=== PATIENT | female | born 1970 | race African-American/Black ===

== ENCOUNTER 2024-09-13 03:28 | Inpatient (IN) | payer OTHER ==
[~2024-09-13] VITALS: Ht 165.1 cm; Wt 81.4 kg
[2024-09-13] MEDS: cloNIDine HCL 0.1 MG TAB PO ONE (04:12)
[2024-09-13 04:25] LABS: Urine Bacteria None Seen /hpf (None Seen)
[2024-09-13 04:45] LABS: Urine Blood Negative /uL (Negative); Urine Clarity Clear (Clear); Urine Color Light-Yellow (Yellow); Urine Protein, UAD Negative (Negative); Urine Specific Gravity 1.037 (1.001-1.035); Urine Squamous Epithelial Cell FEW /hpf (<5); Urine Urobilinogen Normal (Negative); Urine WBC <1 /hpf (0 - 5)
--- NOTE | 2024-09-13 06:06 | DVH ---
Exam: CT CT AB PEL WO CON-NO ORAL OR IV History: abd pain Comparison Study: None Technique: Multidetector spiral CT of the abdomen was performed from lung bases to pubic symphysis. Imaging was performed without IV contrast. Axial, coronal and sagittal multiplanar reformats were ob tained from the axial data set by the technologist. Radiation Dose : 1. Abdomen/Pelvis: CTDIvol 9 mGy, DLP 480 mGy*cm. Findings: Evaluation of solid organs is limited due to lack of intravenous contrast use. Lung Bases: No acute or significant lung base finding. Normal heart size. No pleural or pericardial effusion. Liver: The liver is normal in size. No focal lesions. Gallbladder and Biliary Tree: Unremarkable Spleen: Unremarkable Pancreas: The pancreas is grossly normal in appearance. Adrenal Glands: Unremarkable Kidneys: Kidneys are grossly normal without calculi or hydronephrosis. Bladder: Grossly unremarkable for degree of distention. Bowel: The stomach is grossly normal in appearance. Diverticulosis. Moderate volume colonic stool. N ormal appendix is visualized in the right lower quadrant without findings of appendicitis. Ascites: Absent Lymphadenopathy: No mesenteric, retroperitoneal or periportal lymphadenopathy. Abdominal Wall and Mesentery: Unremarkable. Vasculature: The visualized abdominal aorta is normal in size and caliber. Evaluation of abdominal a nd pelvic vessels is limited due to lack of intravenous contrast. Pelvic Organs: Unremarkable Musculoskeletal: No aggressive focal bony lesions, acute fractures or dislocation. IMPRESSION: Moderate volume colonic stool. Radiation optimization: All CT scans at this facility use at least one of these dose optimization jammie hniques: automated exposure control mA and/or kV adjustment per patient size (includes targeted exam s where dose is matched to clinical indication) or iterative reconstruction.
[2024-09-13 06:15] LABS: Basophils # (auto) 0.1 10 ^3/uL (0-0.2); Eosinophils # (auto) 0.2 10 ^3/uL (0-0.8); Eosinophils % (auto) 1.9 % (0.0-7.0); Hematocrit 40.3 % (36.0-46.0); Hemoglobin 13.7 g/dL (12.2-16.2); Lymphocytes # (auto) 3.2 10 ^3/uL (0.4-5.4); Lymphocytes % (auto) 39.4 % (10.0-50.0); Monocytes # (auto) 0.5 10 ^3/uL (0-1.3); Monocytes % (auto) 6.8 % (0.0-12.0); Neutrophils # (auto) 4.1 10 ^3/uL (1.6-8.6); Neutrophils % (auto) 50.9 % (37.0-80.0); Platelet Count (auto) 268 10^3/uL (140-450); Red Blood Cells 4.43 10^6/uL (4.0-5.20); Red Cell Distribution Width 14.6 % (11.8-14.3)
[2024-09-13] MEDS: SODIUM CHLORIDE 0.9% 1,000 ML IV ONE (06:17)
[2024-09-13 06:22] LABS: Alanine Aminotransferase 13 U/L (7-40); Albumin 4.2 g/dL (3.2-4.8); Anion Gap 4 (5-15); BUN/Creatinine Ratio 11.7 (10.0-20.0); Blood Urea Nitrogen 12 mg/dL (9-23); Carbon Dioxide 29 mmol/L (20-31); Chloride 102 mmol/L (98-107); Lipase 36 U/L (12-53); Potassium 4.1 mmol/L (3.5-5.1); Total Protein 7.1 g/dL (5.7-8.2)
[2024-09-13 06:39] LABS: Amphetamine Screen, Urine Pos (NEGATIVE); Barbiturate Scree,Urine Neg (NEGATIVE); Benzodiazephine Screen, Urine Neg (NEGATIVE); Cannabinoid Screen, Urine Pos (NEGATIVE); Cocaine Screen, Urine Neg (NEGATIVE); Opiate Scree,Urine Neg (NEGATIVE); Phencyclidine Screen, Urine Neg (NEGATIVE)
[2024-09-13 06:44] LABS: Alkaline Phosphatase 144 U/L (46-116); Aspartate Aminotransferase 11 U/L (13-40); Bilirubin, Total 0.2 mg/dL (0.2-1.0); Glucose 330 mg/dL (74-106); Sodium 135 mmol/L (136-145)
--- NOTE | 2024-09-13 07:12 | ED.PDOC ---
GI ASSESSMENT HPI Comments 54 year old female presents to the ED with a chief complaint of abdominal pain onset 4 days. Patient states she has been experiencing diffused abdominal lapin that radiates to he back fo the past 4 days. Patient denies nausea, vomiting, diarrhea, constipation, dysuria, hematuria, dizziness, chest pain, shortness of breath. No other symptoms or modifying factors present at this time. 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 Family History Family History: Unknown Social History Smoker: Cigarettes Alcohol: Denies ETOH Use Drugs: Marijuana Lives In: Home Constitutional: denies: chills, diaphoresis, fatigue, fever, malaise, sweats, weakness, others EENTM: denies: blurred vision, double vision, ear bleeding, ear discharge, ear drainage, ear pain, ear ringing, eye pain, eye redness, hearing loss, mouth pain, mouth swelling, nasal discharge, nose bleeding, nose congestion, nose pain, photophobia, tearing, throat pain, throat swelling, voice changes, others Respiratory: denies: cough, hemoptysis, orthopnea, SOB at rest, shortness of breath, SOB with excertion, stridor, wheezing, others Cardiovascular: denies: chest pain, dizzy spells, diaphoresis, Dyspnea on exertion, edema, irregular heart beat, left arm pain, lightheadedness, palpitat ions, PND, syncope, others Gastrointestinal: reports: abdomen distended, abdominal pain; denies: blood streaked bowels, constipated, diarrhea, dysphagia, difficulty swallowing, hematemesis, melena, nausea, poor appetite, poor fluid intake, rectal bleeding, rectal pain, vomiting, others Genitourinary: denies: abnormal vagina bleeding, burning, dyspareunia, dysuria, flank pain, frequency, hematuria, incontinence, pain, , vagina discharge, urgency, others Neurological: denies: dizziness, fainting, headache, left sided numbness, left sided weakness, numbness, paresthesia, pre-existing deficit, right sided numbness, right sided weakness, seizure, speech problems, tingling, tremors, weakness, others Musculoskeletal: reports: back pain; denies: gout, joint pain, joint swelling, muscle pain, muscle stiffness, neck pain, others Integumetry: denies: bruises, change in color, change in hair/nails, dryness, laceration, lesions, lumps, rash, wounds, others Allergic/Immunocompromised: denies: Difficulty Healing, Frequent Infections, Hives, Itching, others Hematologic/Lymphatic: denies: anemia, blood clots, easy bleeding, easy bruising, swollen glands, others Endocrine: denies: excessive hunger, excessive sweating, excessive thirst, excessive urination, flushing, intolerance to cold, intolerance to heat, unexplained weight gain, unexplained weight loss, others Psychiatric: denies: anxiety, bipolar disorder, depression, hopeless, panic disorder, schizophrenia, sleepless, suicidal, others All Other Systems: Reviewed and Negative Physical Exam General Appearance: Moderate Distress HEENT: Normal ENT Inspection, Pharynx Normal, TMs Normal Neck: Full Range of Motion, Non-Tender, Normal, Normal Inspection Respiratory: Chest Non-Tender, Lungs Clear, No Accessory Muscle Use, No Respiratory Distress, Normal Breath Sounds Cardiovascular: No Edema, No JVD, No Murmur, No Gallop, Normal Peripheral Pulses, Regular Rate/Rhythm Breast Exam: Deferred Gastrointestinal: No Organomegaly, Non Tender, No Pulsatile Mass, Normal Bowel Sounds, Soft Genitalia: Deferred Pelvic: Deferred Rectal: Deferred Extremities: No calf tenderness, Normal capillary refill, Normal inspection, Normal range of motion, Non-tender, No pedal edema Musculoskeletal : Apperance: Normal Neurologic: Alert, 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 Was a procedure done?: No GI differential Dx Differential Diagnosis: Constipation, Diverticular disease, Esophagitis, Gastritis/PUD, Gastroenteritis X-Ray, Labs, Meds, VS Vital Signs Date Time Temp Pulse Resp B/P (MAP) Pulse Ox O2 Delivery O2 Flow Rate FiO2 09/13/24 06:31 90 18 109/103 (105) 99 09/13/24 06:31 109/103 09/13/24 06:23 70 14 184/43 (90) 99 09/13/24 04:38 98 09/13/24 04:12 213/123 09/13/24 03:45 98.5 100 16 213/123 (153) 99 Lab Test 09/13/24 05:53 09/13/24 03:54 Range/Units White Blood Count 8.0 4.4-10.8 10^3/uL Red Blood Count 4.43 4.0-5.20 10^6/uL Hemoglobin 13.7 12.2-16.2 g/dL Hematocrit 40.3 36.0-46.0 % Mean Corpuscular Volume 91.0 80.0-100.0 fL Mean Corpuscular Hemoglobin 31.0 28.0-32.0 pg Mean Corpuscular Hemoglobin Concent 34.0 32.0-36.0 g/dL Red Cell Distribution Width 14.6 H 11.8-14.3 % Platelet Count 268 140-450 10^3/uL Mean Platelet Volume 8.2 6.9-10.8 fL Neutrophils (%) (Auto) 50.9 37.0-80.0 % Lymphocytes (%) (Auto) 39.4 10.0-50.0 % Monocytes (%) (Auto) 6.8 0.0-12.0 % Eosinophils (%) (Auto) 1.9 0.0-7.0 % Basophils (%) (Auto) 1.0 0.0-2.0 % Neutrophils # (Auto) 4.1 1.6-8.6 10 ^3/uL Lymphocytes # (Auto) 3.2 0.4-5.4 10 ^3/uL Monocytes # (Auto) 0.5 0-1.3 10 ^3/uL Eosinophils # (Auto) 0.2 0-0.8 10 ^3/uL Basophils # (Auto) 0.1 0-0.2 10 ^3/uL Nucleated Red Blood Cells 0.0 % Sodium Level 135 L 136-145 mmol/L Potassium Level 4.1 3.5-5.1 mmol/L Chloride Level 102 98-107 mmol/L Carbon Dioxide Level 29 20-31 mmol/L Anion Gap 4 L 5-15 Blood Urea Nitrogen 12 9-23 mg/dL Creatinine 1.03 H 0.550-1.02 mg/dL Glomerular Filtration Rate Calc 64 >90 mL/min BUN/Creatinine Ratio 11.7 10.0-20.0 Serum Glucose 330 H 74-106 mg/dL Calcium Level 10.0 8.7-10.4 mg/dL Total Bilirubin 0.2 0.2-1.0 mg/dL Aspartate Amino Transferase (AST) 11 L 13-40 U/L Alanine Aminotransferase (ALT) 13 7-40 U/L Alkaline Phosphatase 144 H 46-116 U/L Total Protein 7.1 5.7-8.2 g/dL Albumin 4.2 3.2-4.8 g/dL Lipase 36 12-53 U/L Urine Color Light-yellow Yellow Urine Clarity Clear Clear Urine pH 6.0 5.0-9.0 Urine Specific [place] 1.037 H 1.001-1.035 Urine Protein Negative Negative Urine Ketones Negative Negative Urine Blood Negative Negative /uL Urine Nitrite Negative Negative Urine Bilirubin Negative Negative Urine Urobilinogen Normal Negative mg/dL Urine Leukocyte Esterase Negative Negative /uL Urine RBC 2 0 - 4 /hpf Urine WBC <1 0 - 5 /hpf Urine Squamous Epithelial Cells Few <5 /hpf Urine Bacteria None seen None Seen /hpf Urine Glucose 4+ H Normal mg/dL Urine Opiates Screen Neg NEGATIVE Urine Fentanyl Screen Neg NEGATIVE Urine Barbiturates Screen Neg NEGATIVE Urine Phencyclidine Screen Neg NEGATIVE Urine Amphetamines Screen Pos NEGATIVE Urine Benzodiazepines Screen Neg NEGATIVE Urine Cocaine Screen Neg NEGATIVE Urine Cannabinoids Screen Pos NEGATIVE Current Medications Medications (Trade) Dose Ordered Sig/Nathaly Route Start Time Stop Time Status Last Admin Clonidine HCl (Catapres Tablet) 0.2 mg ONCE ONCE PO 09/13/24 04:00 09/13/24 04:01 DC 09/13/24 04:12 Patient alert. Complaining of abdominal pain. Uses drugs. Blood pressure elevated. Was given clonidine. Methamphetamine. Marijuana. Blood sugar elevated. Establish intravenous access. Was given fluids. Blood pressure continues to be elevated. Abdomen is soft nontender. Reviewed her previous visit. Explained to the patient. Continue cardiac monitoring. CT scan of the abdomen reviewed does not show any acute changes. Time of 1ST Reevaluation: 07:04 Reevaluation 1ST: Unchanged Patient Education/Counseling: Diagnosis, Treatment, Prognosis Family Education/Counseling: No Family Present Additional Information I reviewed the following notes from patient's past medical encounters: none The following tests were ordered, and results were reviewed by me: EKG, UA, CT AB PEL WO CON, CBC, CMP, LIPASE, DRUG SCREEN I reviewed and agreed with the following test results read by other providers: CT AB PEL WO CON I discussed treatment and results with medical personnel and patient Departure 1 Departure Time of Disposition: 07:25 Impression: Primary Impression: Acute abdominal pain Additional Impressions: Uncontrolled diabetes mellitus Qualified Codes: E13.65 - Other specified diabetes mellitus with hyperglycemia Hypertensive urgency Marijuana use Methamphetamine use Disposition: ADMITTED INPATIENT Admit to: Med Surg Condition: Guarded Critical Care Note Critical Care Time?: Yes (90 min-critical care time only) Stability Stability form required: No Heart Score Heart Score: Heart Score Response (Comments) Value History N/A 0 EKG N/A 0 Age N/A 0 Risk Factors N/A 0 Troponin N/A 0 Total 0 I personally scribed for JOSÉ LUIS CASTELLANOS MD ([email or web address]) on 09/13/24 at 07:12. Electronically submitted by Shonda Levi ([email or web address]). I personally scribed for JOSÉ LUIS CASTELLANOS MD ([email or web address]) on 09/13/24 at 07:32. Electronically submitted by Shonda Levi ([email or web address]). JOSÉ LUIS CASTELLANOS MD Sep 13, 2024 07:12
[2024-09-13] MEDS: amLODIPine BESYLATE 5 MG TAB PO ONE (07:53)
[2024-09-13] MEDS ORDERED: PANTOPRAZOLE 40 MG/10 ML VIAL INJ IV ONE (11:00)
[2024-09-13] MEDS ORDERED: ACETAMINOPHEN 325 MG TAB PO PRN (11:00)
[2024-09-13] MEDS ORDERED: HYDROcodone-ACET 5/325MG TAB PO PRN (11:00)
[2024-09-13] MEDS ORDERED: SOD CHL 0.45% 1,000 ML IV ONE (11:00)
[2024-09-13] MEDS ORDERED: MORPHINE SULFATE INJ 2 MG/ml SYRG IV PRN (11:00)
[2024-09-13] MEDS ORDERED: hydrALAZINE HCL 20 MG/ML VL IV PRN (11:00)
[2024-09-13] MEDS ORDERED: NIFEdipine ER 30 MG TAB PO ONE (11:00)
[2024-09-13] MEDS ORDERED: ONDANSETRON HCL 4 MG/2 ML VIAL IV PRN (11:00)
--- NOTE | 2024-09-13 11:25 | DVHHP2 ---
History of Present Illness Reason for Visit: Abdominal pain History of Present Illness This 54-year-old female presents in the ED with a chief complaint of abdominal pain. The patient reports suprapubic abdominal pain radiates to right lower back started four days ago. Denies nausea, vomiting, diarrhea, constipation, melena, chest pain, shortness of breath, or other acute symptoms. The patient denies past medical history but admits to tobacco use 10 pack years, amphetamine and marijuana use. Past Medical History Denies Past Surgical History Tubal ligation Family History Reviewed, non-contributory to the management of this case. Past Social History Tobacco use 1/2 per day Amphetamine and marijuana use Denies EtOH abuse Review of Systems Constitutional: Yes: Malaise; No: Fever, Chills, Sweats, Weakness, Other Eyes: No: Pain, Vision change, Conjunctivae inflammation, Eyelid inflammation, Other, Redness ENT: No: Ear pain, Ear discharge, Nose pain, Nose discharge, Nose congestion, Mouth pain, Mouth swelling, Throat pain, Throat swelling, Other Respiratory: No: Cough, Dry, Shortness of breath, SOB with excertion, Wheezing, Hemoptysis, Pleuritic Pain, Sputum, Wheezing, Other Cardiovascular: No: Chest Pain, Palpitations, Orthopnea, Paroxysmal Noc. Dyspnea, Edema, Lt Headedness, Other Gastrointestinal: Abdominal Pain; No: Nausea, Vomiting, Diarrhea, Constipation, Melena, Hematochezia, Other Genitourinary: No Dysuria, No Frequency, No Incontinence, No Hematuria, No Retention, No Other Musculoskeletal: No: other, neck pain, shoulder pain, arm pain, back pain, hand pain, leg pain, foot pain Skin: No: Rash, Lesions, Jaundice, Bruising, Other Neurological: No: Weakness, Numbness, Incoordination, Change in speech, Confusion, Seizures, Other Allergies: Coded Allergies: Lisinopril (Verified Allergy, Unknown, 09/13/24) Metoclopramide (Verified Allergy, Unknown, 09/13/24) Exam Vital Signs Vital Signs Date Time Temp Pulse Resp B/P (MAP) Pulse Ox O2 Delivery O2 Flow Rate FiO2 09/13/24 07:53 175/109 09/13/24 07:33 95 20 99 Room Air 09/13/24 07:33 98.0 98.0 General Appearance: Alert, Oriented X3, Cooperative, mild distress HEENT: Atraumatic, PERRLA, EOMI, Mucous membr. moist/pink Respiratory: Clear to auscultation, Normal air movement Cardiovascular: Regular rate, Normal S1, Normal S2, Other (Uncontrolled BP) Abdominal: Normal bowel sounds, Soft, No tenderness, No hepatospenomegaly, No masses Extremities: No clubbing, No cyanosis, No edema, Normal pulses, No tenderness/swelling Skin: No rashes, No significant lesion Neuro: Normal gait, Normal speech, Strength at 5/5 X4 ext, Normal tone Psych/Mental Status: Mental status NL Labs/Xrays Labs Test 09/13/24 05:53 09/13/24 03:54 Range/Units White Blood Count 8.0 4.4-10.8 10^3/uL Red Blood Count 4.43 4.0-5.20 10^6/uL Hemoglobin 13.7 12.2-16.2 g/dL Hematocrit 40.3 36.0-46.0 % Mean Corpuscular Volume 91.0 80.0-100.0 fL Mean Corpuscular Hemoglobin 31.0 28.0-32.0 pg Mean Corpuscular Hemoglobin Concent 34.0 32.0-36.0 g/dL Red Cell Distribution Width 14.6 H 11.8-14.3 % Platelet Count 268 140-450 10^3/uL Mean Platelet Volume 8.2 6.9-10.8 fL Neutrophils (%) (Auto) 50.9 37.0-80.0 % Lymphocytes (%) (Auto) 39.4 10.0-50.0 % Monocytes (%) (Auto) 6.8 0.0-12.0 % Eosinophils (%) (Auto) 1.9 0.0-7.0 % Basophils (%) (Auto) 1.0 0.0-2.0 % Neutrophils # (Auto) 4.1 1.6-8.6 10 ^3/uL Lymphocytes # (Auto) 3.2 0.4-5.4 10 ^3/uL Monocytes # (Auto) 0.5 0-1.3 10 ^3/uL Eosinophils # (Auto) 0.2 0-0.8 10 ^3/uL Basophils # (Auto) 0.1 0-0.2 10 ^3/uL Nucleated Red Blood Cells 0.0 % Sodium Level 135 L 136-145 mmol/L Potassium Level 4.1 3.5-5.1 mmol/L Chloride Level 102 98-107 mmol/L Carbon Dioxide Level 29 20-31 mmol/L Anion Gap 4 L 5-15 Blood Urea Nitrogen 12 9-23 mg/dL Creatinine 1.03 H 0.550-1.02 mg/dL Glomerular Filtration Rate Calc 64 >90 mL/min BUN/Creatinine Ratio 11.7 10.0-20.0 Serum Glucose 330 H 74-106 mg/dL Calcium Level 10.0 8.7-10.4 mg/dL Total Bilirubin 0.2 0.2-1.0 mg/dL Aspartate Amino Transferase (AST) 11 L 13-40 U/L Alanine Aminotransferase (ALT) 13 7-40 U/L Alkaline Phosphatase 144 H 46-116 U/L Total Protein 7.1 5.7-8.2 g/dL Albumin 4.2 3.2-4.8 g/dL Lipase 36 12-53 U/L Urine Color Light-yellow Yellow Urine Clarity Clear Clear Urine pH 6.0 5.0-9.0 Urine Specific [place] 1.037 H 1.001-1.035 Urine Protein Negative Negative Urine Ketones Negative Negative Urine Blood Negative Negative /uL Urine Nitrite Negative Negative Urine Bilirubin Negative Negative Urine Urobilinogen Normal Negative mg/dL Urine Leukocyte Esterase Negative Negative /uL Urine RBC 2 0 - 4 /hpf Urine WBC <1 0 - 5 /hpf Urine Squamous Epithelial Cells Few <5 /hpf Urine Bacteria None seen None Seen /hpf Urine Glucose 4+ H Normal mg/dL Urine Opiates Screen Neg NEGATIVE Urine Fentanyl Screen Neg NEGATIVE Urine Barbiturates Screen Neg NEGATIVE Urine Phencyclidine Screen Neg NEGATIVE Urine Amphetamines Screen Pos NEGATIVE Urine Benzodiazepines Screen Neg NEGATIVE Urine Cocaine Screen Neg NEGATIVE Urine Cannabinoids Screen Pos NEGATIVE PROCEDURE(s): ABPL - CT AB PEL WO CON-NO ORAL OR IV REASON: abd pain ORDER NUMBER(s): [id number], ACCESSION NUMBER(s): [id number] Exam: CT CT AB PEL WO CON-NO ORAL OR IV History: abd pain Comparison Study: None Technique: Multidetector spiral CT of the abdomen was performed from lung bases to pubic symphysis. Imaging was performed without IV contrast. Axial, coronal and sagittal multiplanar reformats were obtained from the axial data set by the technologist. Radiation Dose : 1. Abdomen/Pelvis: CTDIvol 9 mGy, DLP 480 mGy*cm. Findings: Evaluation of solid organs is limited due to lack of intravenous contrast use. Lung Bases: No acute or significant lung base finding. Normal heart size. No pleural or pericardial effusion. Liver: The liver is normal in size. No focal lesions. Gallbladder and Biliary Tree: Unremarkable Spleen: Unremarkable Pancreas: The pancreas is grossly normal in appearance. Adrenal Glands: Unremarkable Kidneys: Kidneys are grossly normal without calculi or hydronephrosis. Bladder: Grossly unremarkable for degree of distention. Bowel: The stomach is grossly normal in appearance. Diverticulosis. Moderate volume colonic stool. Normal appendix is visualized in the right lower quadrant without findings of appendicitis. Ascites: Absent Lymphadenopathy: No mesenteric, retroperitoneal or periportal lymphadenopathy. Abdominal Wall and Mesentery: Unremarkable. Vasculature: The visualized abdominal aorta is normal in size and caliber. Evaluation of abdominal and pelvic vessels is limited due to lack of intravenous contrast. Pelvic Organs: Unremarkable Musculoskeletal: No aggressive focal bony lesions, acute fractures or dislocation. IMPRESSION: Moderate volume colonic stool. Assessment/Plan Assessment/Plan # hypertensive crisis # elevated BP with no history of hypertension Admit to telemetry unit Nifedipine 90mg qd Hydralazine as needed asa, statins Echocardiogram Monitor BP Counseled on DASH diet Check lipid panel, TSH # acute abdominal pain # constipation CT/abd reviewed with moderate colonic stool PPI Colace # hyperglycemia ISS Check A1c # nicotine dependence, tobacco 1/2 PPD X 20 years Smoking cessation counseled Nicotine patch # positive amphetamine and marijuana Counseled on cessation # SHILA on CKD 2 IV fluid Medical plan discussed with patient Plan discussed with: Patient Date of Service: Sep 13, 2024 Billing Provider: EDGAR GUIDO Common Visit Codes: [id number] INP/OBS CARE (HIGH) EDGAR GUIDOP Sep 13, 2024 11:25
[2024-09-13] MEDS ORDERED: ASPirin 81 mg TAB PO ONE (11:30)
[2024-09-13] MEDS ORDERED: DEXTROSE (50%) 50ML SYRG IV PRN (11:30)
[2024-09-13] MEDS ORDERED: NICOTINE 14 MG/24HR TOPICAL PATCH TD ONE (11:45)
[2024-09-13] MEDS ORDERED: DOCUSATE SOD 100 MG CAP PO PRN (11:45)
[2024-09-13 12:23] LABS: Cholesterol 175 mg/dL (< 200); HDL Cholesterol 42 mg/dL (40-59)
[2024-09-13 12:24] LABS: LDL Cholesterol 109 mg/dL (< 100); Triglycerides 318 mg/dL (< 150)
--- NOTE | 2024-09-13 12:25 | DVH ---
CHEST RADIOGRAPH Indication: Hypertension crisis Technique: Single frontal view of the chest was obtained Comparison: None FINDINGS: Lines and Tubes: None Lungs: No focal consolidation. Pleura: No effusion. No pneumothorax. Cardiomediastinal contours: Unremarkable Bones: No acute osseous abnormality. IMPRESSION: No acute cardiopulmonary disease.
[2024-09-13 13:00] VITALS: BP 172/97; PULSE 91; RESP 19; TEMP 97.5; O2SAT 99
[2024-09-13 18:31] VITALS: BP 189/93; PULSE 95; RESP 18; TEMP 98.2; O2SAT 98
[2024-09-13] MEDS: ACCU-CHEK COMFORT CURVE STRIP VI SCH (19:52)
[2024-09-13] MEDS: InsuLIN REG 1unit/0.01ml Soln (100units/ml) SC SCH (19:54)
[2024-09-13] MEDS ORDERED: ATORVASTATIN 20 MG TAB PO SCH (22:00)
[2024-09-14] MEDS ORDERED: ASPirin 81 mg TAB PO SCH (10:00)
[2024-09-14] MEDS ORDERED: NIFEdipine ER 30 MG TAB PO SCH (10:00)
[2024-09-14] MEDS ORDERED: NICOTINE 14 MG/24HR TOPICAL PATCH TD SCH (10:00)
[2024-09-14] MEDS ORDERED: PANTOPRAZOLE 40 MG/10 ML VIAL INJ IV SCH (10:00)
== END 2024-09-13 20:27 | disposition left against medical advice (07) | DRG 251 ==
LOC: ER 03:28 → OVERFLOW 10:55 → TELE 11:26
PROVIDERS: ADMIT Registered Nurse; ATTEND Registered Nurse
DX: R10.2 Pelvic and perineal pain (principal); N17.9 Acute kidney failure, unspecified; K59.00 Constipation, unspecified; E11.22 Type 2 diabetes mellitus with diabetic chronic kidney disease; F15.90 Other stimulant use, unspecified, uncomplicated; Z53.29 Procedure and treatment not carried out because of patient's decision for other reasons; F17.210 Nicotine dependence, cigarettes, uncomplicated; I16.0 Hypertensive urgency; N18.2 Chronic kidney disease, stage 2 (mild); E11.65 Type 2 diabetes mellitus with hyperglycemia; Z71.6 Tobacco abuse counseling; Z79.4 Long term (current) use of insulin; Z79.899 Other long term (current) drug therapy
CPT/HCPCS: 36415; 71045; 74176; 80053; 80061; 80307; 81001; 83036; 83690; 84443; 85025; 96372; 99291; 99292; G0378; J1815